=== PATIENT | female | born 1975 ===

== ENCOUNTER 2017-10-31 03:17 | Emergency (ER) | payer SELFPAY ==
[~2017-10-31] VITALS: Ht 162.5 cm; Wt 63.5 kg
== END 2017-10-31 04:06 | disposition left against medical advice (07) ==
LOC: ED 03:17
DX: F10.129 Alcohol abuse with intoxication, unspecified (principal); Z53.21 Procedure and treatment not carried out due to patient leaving prior to being seen by health care provider; Y90.9 Presence of alcohol in blood, level not specified